=== PATIENT | female | born 1955 | race Caucasian/White ===

== ENCOUNTER 2020-08-21 07:09 | Inpatient (IN) | payer MEDICARE ==
[~2020-08-21] VITALS: Ht 152.4 cm; Wt 78.9 kg
--- NOTE | ~2020-08-21 | EMS ---
[facility] [address] [place] [address] EMS Patient Care Report Name: JAIME MARTINEZ Room: [address] IN [facility]#: [id number] Admission: 08/21/20 Attend Phys: Lynn Navarro Discharge: Date of : 51 Report #: [id number] THIS REPORT FOR: //name// Report Transmitted: 08/23/2020 15:57 EMS Care Summary [employer] [facility] Incident [id number] @ 08/21/2020 06:26 Incident Location [address] [place] [address] Patient JAIME MARTINEZ Female, 65 Years 1955 Patient Address [address] [place] [address] Patient History Hypertension (HTN),Novel Coronavirus (COVID-19), Patient Allergies Bactrim, Chief Complaint SHORT OF BREATH Disposition Transported No Lights/[place] [facility] Reason Breathing Problem Transported To [facility] Narrative Engine 2 and Med 1 were dispatched for a [age] year-old female c/o shortness of breath and increased weakness. Patient has confirmed COVID positive. She was just released from [facility] on . Her also is COVID positive and is a patient at [facility]. Patient is AOx3, she has a strong regular bilateral radial pulses. She reports she began having increased shortness of breath and weakness before going to bed [place] [address] EMS Patient Care Report Name: JAIME MARTINEZ Room: [address] IN M.R.#: [id number] Admission: 08/21/20 Attend Phys: Lynn Navarro Discharge: Date of : 51 Report #: [id number] last night. Patient was assisted to the stretcher outside her front door and secured via seatbelts and moved to the ambulance without incident. Med 1 transported to [facility]. In the ambulance, patient's vitals were obtained. Patient was placed on Oxygen via nasal cannula at 2 lpm. Patient was monitored through out transport. Hospital report was given via radio with no questions requested or received. Med 1 arrived at the hospital. Patient was moved to the ER via stretcher without incident. Patient care was transferred to ER staff in room 13. Med 1 returned back into service. [id number] [facility]Shook Initial Vitals @06:44P: 94,SpO2: 93, @06:59P: 94,SpO2: 93, @06:40P: 101,R: 18,BP: 115/93,SpO2: 93, @06:54P: 91,R: 18,BP: 127/71,SpO2: 89, @06:54P: 94,SpO2: 93, @06:49P: 92,SpO2: 94, @07:23GCS: 15,Temp: 97.6F, Assessments @06:40MENTAL:No Abnormalities,SKIN:No Abnormalities,HEENT:Head/Face: No Abnormalities,Eyes: No Abnormalities,Neck/Airway: No Abnormalities,LUNG SOUNDS:ABDOMEN:PELVIS//GI:EXTREMITIES:Left Arm: No Abnormalities,Right Arm: No Abnormalities,Left Leg: No Abnormalities,Right Leg: No Abnormalities,PULSE:NEURO:No Abnormalities, Impression Shortness of breath Procedures @06:43Oxygen FlowRate: 3 Device: Nasal Cannula (NC) Response: UnchangedSucceeded Timeline 06:,Call Received 06:,Dispatched 06:,En Route 06:28,On Scene 06:29,At Patient 06:40,[place] [address] EMS Patient Care Report Name: JAIME MARTINEZ Room: [address] IN [facility]#: [id number] Admission: 08/21/20 Attend Phys: Lynn Navarro Discharge: Date of : 51 Report #: [id number] 06:40,BP: 115/93 M,PULSE: 101,RR: 18 R,SPO2: 93 Ox,ETCO2: ,BG: ,PAIN: ,GCS: , 06:43,Oxygen FlowRate: 3 Device: Nasal Cannula (NC) Response: UnchangedSucceeded, 06:44,BP: / M,PULSE: 94,RR: R,SPO2: 93 Ox,ETCO2: ,BG: ,PAIN: ,GCS: , 06:49,BP: / M,PULSE: 92,RR: R,SPO2: 94 Ox,ETCO2: ,BG: ,PAIN: ,GCS: , 06:54,BP: 127/71 M,PULSE: 91,RR: 18 R,SPO2: 89 Ox,ETCO2: ,BG: ,PAIN: ,GCS: , 06:54,BP: / M,PULSE: 94,RR: R,SPO2: 93 Ox,ETCO2: ,BG: ,PAIN: ,GCS: , 06:59,BP: / M,PULSE: 94,RR: R,SPO2: 93 Ox,ETCO2: ,BG: ,PAIN: ,GCS: , 07:02,At Destination 07:23,BP: / M,PULSE: ,RR: R,SPO2: Ox,ETCO2: ,BG: ,PAIN: ,GCS: 15, 07:28,Call Closed 07:28,In District Disclaimer v1.1 Copyright 2020 [employer] This EMS Care Summary contains data elements from the applicable legal record (which may be displayed differently). It is designed to provide pertinent information for the following purposes: continuity of care, clinical quality, and state data reporting. The complete legal record is available to ED staff and administrators of the receiving hospital in [employer]'s Patient Tracker. All data is provided "as is."
[2020-08-21 07:15] VITALS: BP 122/70
[2020-08-21] MEDS ORDERED: SIMVASTATIN80 MG PO (07:17)
[2020-08-21 08:03] LABS: ABSOLUTE LYMPHOCYTES 0.8 thou/uL (0.8-5.3); ABSOLUTE MONOCYTES 0.5 thou/uL (0.0-1.2); ABSOLUTE NEUTROPHILS 6.5 thou/uL (1.6-8.1); BASOPHILS 0.2 %; HEMATOCRIT 39.7 % (37.0-47.0); HEMOGLOBIN 13.4 gm/dL (12.0-15.0); LYMPHOCYTES 10.1 %; MCH 31.5 pg (26.0-34.0); MCHC 33.9 g/dL (28.0-37.0); MCV 92.8 fL (80.0-100.0); MONOCYTES 6.8 %; MPV 8.2 fl. (7.2-11.1); NUCLEATED RBCS 0 /100WBC; PLATELET COUNT* 182 thou/uL (150-400); POLYS 82.9 %; RBC 4.27 mil/uL (4.20-5.00); RDW-CV 13.4 % (10.5-14.5); WBC 7.9 thou/uL (4.0-11.0)
[2020-08-21 08:16] LABS: APTT 23.2 Seconds (25.0-31.3); PROTIME 10.9 Seconds (9.20-11.50)
[2020-08-21 08:21] LABS: CALCIUM 7.8 mg/dL (8.5-10.1); CREATININE 0.9 mg/dL (0.6-1.3); POTASSIUM 3.3 mmol/L (3.5-5.1)
[2020-08-21 08:31] LABS: ALBUMIN 2.7 g/dL (3.4-5.0); TOTAL BILIRUBIN 0.4 mg/dL (<0.1-1.0); TOTAL PROTEIN 6.4 g/dL (6.4-8.2)
[2020-08-21 11:02] VITALS: BP 91/61
[2020-08-21 12:00] VITALS: BP 100/60
--- NOTE | 2020-08-21 16:13 | EKG ---
[place] [address] ELECTROCARDIOGRAM REPORT Name: JAIME MARTINEZ Aisha Room: [address] ADM IN ..#: [id number] Admission: 08/21/20 Attend Phys: Rafy Pappas Discharge: Date of : 51 Date of Service: 08/21/20 0739 Report #: [id number] THIS REPORT FOR: //name// [facility] ED Test Date: 2020-08-21 Test Time: 07:39:32 Pat Name: JAIME MARTINEZ Department: Room: [facility] Gender: F Beading [place]: DS : 1955 Requested By: Manuel Chisholm Order Number: [id number] MD: Rosendo Ricks Measurements Intervals [place] Rate: 94 P: 39 MA: 137 QRS: 17 QRSD: 82 T: 43 QT: 332 QTc: 416 Interpretive Statements Sinus rhythm Abnormal R-wave progression, early transition No previous ECG available for comparison Electronically Signed On 08-21-2020 16:13:00 THERAPY TEACHER by Rosendo Ricks [email or web address] <ELECTRONICALLY SIGNED> By: Rosendo Ricks MD, FAC 08/21/20 1613 0739 0739 Rosendo Ricks MD, [facility] /EPI
[2020-08-22] VITALS: BP 105/67
[2020-08-22 04:00] VITALS: BP 110/67
[2020-08-22 07:30] VITALS: BP 120/66
[2020-08-22 12:00] VITALS: BP 112/65
[2020-08-22 16:00] VITALS: BP 99/64
[2020-08-22 21:00] VITALS: BP 100/65
[2020-08-23] VITALS: BP 136/69
[2020-08-23 04:00] VITALS: BP 120/59
[2020-08-23 08:00] VITALS: BP 120/60
[2020-08-23 12:15] VITALS: BP 111/66
[2020-08-23 16:20] VITALS: BP 125/76
[2020-08-24] VITALS: BP 110/61
[2020-08-24 04:00] VITALS: BP 112/57
[2020-08-24 08:00] VITALS: BP 108/56
[2020-08-24 11:40] LABS: HEMATOCRIT 40.4 % (37.0-47.0); HEMOGLOBIN 13.6 gm/dL (12.0-15.0); MCH 31.7 pg (26.0-34.0); MCHC 33.7 g/dL (28.0-37.0); MCV 93.9 fL (80.0-100.0); MPV 8.2 fl. (7.2-11.1); NUCLEATED RBCS 0 /100WBC; PLATELET COUNT* 220 thou/uL (150-400); RDW-CV 13.7 % (10.5-14.5); WBC 15.7 thou/uL (4.0-11.0)
[2020-08-24 12:07] LABS: ALBUMIN 2.2 g/dL (3.4-5.0); CALCIUM 7.9 mg/dL (8.5-10.1); CREATININE 0.9 mg/dL (0.6-1.3); POTASSIUM 3.7 mmol/L (3.5-5.1); TOTAL BILIRUBIN 0.4 mg/dL (<0.1-1.0); TOTAL PROTEIN 6.6 g/dL (6.4-8.2)
[2020-08-24 12:10] LABS: ABSOLUTE LYMPHOCYTES 1.1 thou/uL (0.8-5.3); ABSOLUTE MONOCYTES 0.2 thou/uL (0.0-1.2); ABSOLUTE NEUTROPHILS 14.4 thou/uL (1.6-8.1)
[2020-08-24 12:11] LABS: PLATELET ESTIMATE ADEQUATE
[2020-08-24 16:00] VITALS: BP 111/58
[2020-08-24 17:47] VITALS: BP 132/69
[2020-08-24 20:15] LABS: CALCIUM 7.9 mg/dL (8.5-10.1); CREATININE 0.9 mg/dL (0.6-1.3); MAGNESIUM 2.3 mg/dL (1.8-2.4); POTASSIUM 3.7 mmol/L (3.5-5.1)
[2020-08-24 21:39] LABS: BE 2.6 mmol/L (-2 to +3); PCO2 36.4 mmHg (35.0-45.0); PO2 62.2 mmHg (75.0-100.0); pH 7.471 (7.340-7.450)
[2020-08-25] VITALS (7 sets, daily range): BP systolic 87–129; BP diastolic 52–76
[2020-08-25 05:36] LABS: ABSOLUTE LYMPHOCYTES 0.5 thou/uL (0.8-5.3); ABSOLUTE MONOCYTES 0.3 thou/uL (0.0-1.2); ABSOLUTE NEUTROPHILS 11.4 thou/uL (1.6-8.1); BASOPHILS 0.2 %; HEMATOCRIT 40.6 % (37.0-47.0); HEMOGLOBIN 13.6 gm/dL (12.0-15.0); MCH 31.3 pg (26.0-34.0); MCHC 33.5 g/dL (28.0-37.0); MCV 93.6 fL (80.0-100.0); MONOCYTES 2.6 %; MPV 8.4 fl. (7.2-11.1); NUCLEATED RBCS 0 /100WBC; PLATELET COUNT* 222 thou/uL (150-400); POLYS 93.2 %; RBC 4.33 mil/uL (4.20-5.00); RDW-CV 13.7 % (10.5-14.5); WBC 12.3 thou/uL (4.0-11.0)
[2020-08-25 07:00] LABS: ALBUMIN 2.3 g/dL (3.4-5.0); CALCIUM 8.1 mg/dL (8.5-10.1); CREATININE 0.9 mg/dL (0.6-1.3); MAGNESIUM 2.4 mg/dL (1.8-2.4); PHOSPHORUS* 3.2 mg/dL (2.5-4.9); POTASSIUM 3.7 mmol/L (3.5-5.1); TOTAL BILIRUBIN 0.6 mg/dL (<0.1-1.0); TOTAL PROTEIN 7.1 g/dL (6.4-8.2)
[2020-08-25 08:27] LABS: BE 2.2 mmol/L (-2 to +3); PCO2 38.1 mmHg (35.0-45.0); PO2 77.9 mmHg (75.0-100.0); pH 7.453 (7.340-7.450)
--- NOTE | 2020-08-25 17:20 | 2DMMODE ---
[place] [address] 2 D/M-MODE ECHOCARDIOGRAM Name: MICHELLEJAIME G Room: [address] ADM IN [place].#: [id number] Admission: 08/21/20 Attend Phys: Rafy Pappas Discharge: Date of : 51 Date of Service: 08/25/20 1720 Report #: [id number] THIS REPORT FOR: cc: FAM - No family physician/PCP FAM - No family physician/PCP Rosendo Ricks MD [facility] ~ APPROVED REPORT Study performed: 08/25/2020 15:26:59 EXAM: Comprehensive 2D, Doppler, and color-flow Echocardiogram Patient Location: In-Patient Room #: [facility] Status: routine BSA: 1.84 HR: 77 bpm BP: 98/63 mmHg Rhythm: NSR Other Information Study Quality: Good Indications Diabetes Dyspnea 2D Dimensions IVSd: 7.62 (7-11mm) LVOT Diam: 16.93 (18-24mm) LVDd: 39.73 mm PWd: 7.60 (7-11mm) Ascending Ao: 28.62 (22-36mm) LVDs: 20.20 (25-40mm) Aortic Root: 27.28 mm Volumes Left Atrial Volume (Systole) LA ESV Index: 14.40 mL/m2 Aortic Valve AoV Peak Blane.: 1.22 m/s AO Peak Gr.: 5.98 mmHg LVOT Max P.01 mmHg AO Mean Gr.: 3.28 mmHg LVOT Mean P.40 mmHg LVOT Max V: 1.23 m/s AO V2 VTI: 24.58 cm LVOT Mean V: 0.69 m/s ERASMO (VTI): 2.30 cm2 LVOT V1 VTI: 25.12 [place] [address] 2 D/M-MODE ECHOCARDIOGRAM Name: JAIME MARTINEZ Room: [address]#: [id number] Admission: 08/21/20 Attend Phys: Rafy Pappas Discharge: Date of : 51 Date of Service: 08/25/20 1720 Report #: [id number] Mitral Valve E/A Ratio: 0.95 MV Decel. Time: 248.63 ms MV E Max Blane.: 0.79 m/s MV PHT: 72.10 ms MVA (PHT): 3.05 cm2 TDI E/Lateral E': 8.78 E/Medial E': 7.18 Medial E' Blane.: 0.11 m/s Lateral E' Blane.: 0.09 m/s Pulmonary Valve PV Peak Blane.: 1.03 m/s PV Peak Gr.: 4.27 mmHg Tricuspid Valve RAP Estimate: 5.00 mmHg TR Peak Gr.: 25.19 mmHg RVSP: 30.00 mmHg PA Pressure: 30.00 mmHg Left Ventricle The left ventricle is normal size. There is normal LV segmental wall motion. There is normal left ventricular wall thickness. Left ventricular systolic function is normal. The left ventricular ejection fraction is within the normal range. LVEF is 65-70%. The left ventricular diastolic function is normal. Right Ventricle The right ventricle is normal size. The right ventricular systolic function is normal. Atria The left atrium size is normal. The right atrium size is normal. Aortic Valve The aortic valve is normal in structure. No aortic regurgitation is present. There is no aortic valvular stenosis. Mitral Valve The mitral valve is normal in structure. There is no mitral valve regurgitation noted. No evidence of mitral valve stenosis. Tricuspid Valve The tricuspid valve is normal in [place] [address] 2 D/M-MODE ECHOCARDIOGRAM Name: JAIME MARTINEZ Room: [address]#: [id number] Admission: 08/21/20 Attend Phys: Rafy Pappas Discharge: Date of : 51 Date of Service: 08/25/20 1720 Report #: [id number] regurgitation. Pulmonic Valve The pulmonary valve is normal in structure. There is no pulmonic valvular regurgitation. Great Vessels The aortic root is normal in size. IVC is normal in size and collapses >50% with inspiration. Pericardium There is no pericardial effusion. <Conclusion> Left ventricular systolic function is normal. The left ventricular ejection fraction is within the normal range. <ELECTRONICALLY SIGNED> By: Rosendo Ricks MD, FACC 08/25/201719 19 19 Rosendo Ricks MD, FACC /INF
[2020-08-25 18:49] LABS: URINE BILIRUBIN NEGATIVE (Negative); URINE BLOOD NEGATIVE (Negative); URINE CLARITY CLEAR; URINE COLOR YELLOW; URINE GLUCOSE-RANDOM NEGATIVE (Negative); URINE KETONES 1+ (Negative); URINE LEUKOCYTES NEGATIVE (Negative); URINE NITRITE NEGATIVE (Negative); URINE PROTEIN TRACE (Negative); URINE SPECIFIC GRAVITY 1.025 (1.005-1.030); URINE UROBILINOGEN 0.2 E.U./dl (0.2-1.0)
[2020-08-25 23:06] LABS: MYCOPLASMA PNEUMONIA IgG <100 U/mL (0-99); MYCOPLASMA PNEUMONIA IgM <770 U/mL (0-769)
[2020-08-26] VITALS: BP 127/72
[2020-08-26 04:00] VITALS: BP 135/76
[2020-08-26 04:43] LABS: BE -0.8 mmol/L (-2 to +3); PCO2 34.1 mmHg (35.0-45.0); PO2 86.2 mmHg (75.0-100.0); pH 7.438 (7.340-7.450)
[2020-08-26 06:16] LABS: ABSOLUTE LYMPHOCYTES 0.7 thou/uL (0.8-5.3); ABSOLUTE MONOCYTES 0.6 thou/uL (0.0-1.2); ABSOLUTE NEUTROPHILS 7.7 thou/uL (1.6-8.1); BASOPHILS 0.1 %; HEMATOCRIT 39.5 % (37.0-47.0); HEMOGLOBIN 13.2 gm/dL (12.0-15.0); MCH 31.4 pg (26.0-34.0); MCHC 33.4 g/dL (28.0-37.0); MCV 94.1 fL (80.0-100.0); MONOCYTES 6.8 %; MPV 8.9 fl. (7.2-11.1); NUCLEATED RBCS 0 /100WBC; PLATELET COUNT* 244 thou/uL (150-400); POLYS 85.1 %; RBC 4.19 mil/uL (4.20-5.00)
[2020-08-26 06:24] LABS: ALBUMIN 2.3 g/dL (3.4-5.0); CALCIUM 8.4 mg/dL (8.5-10.1); MAGNESIUM 2.6 mg/dL (1.8-2.4); TOTAL BILIRUBIN 0.5 mg/dL (<0.1-1.0); TOTAL PROTEIN 6.7 g/dL (6.4-8.2)
[2020-08-26 09:50] VITALS: BP 112/62
[2020-08-26 15:00] VITALS: BP 112/57
[2020-08-26 19:22] VITALS: BP 131/66
[2020-08-26 21:40] VITALS: BP 119/64
[2020-08-27] VITALS (7 sets, daily range): BP systolic 103–145; BP diastolic 54–69
[2020-08-28 00:26] VITALS: BP 131/71
[2020-08-28 04:00] VITALS: BP 124/66
[2020-08-28 08:00] VITALS: BP 108/61
[2020-08-28 12:00] VITALS: BP 126/66
[2020-08-28 16:00] VITALS: BP 103/63
[2020-08-28 16:39] LABS: HEMATOCRIT 38.1 % (37.0-47.0); HEMOGLOBIN 12.8 gm/dL (12.0-15.0); MCH 31.4 pg (26.0-34.0); MCHC 33.5 g/dL (28.0-37.0); MCV 93.6 fL (80.0-100.0); MPV 8.5 fl. (7.2-11.1); NUCLEATED RBCS 0 /100WBC; PLATELET COUNT* 252 thou/uL (150-400); RBC 4.06 mil/uL (4.20-5.00); RDW-CV 14.3 % (10.5-14.5); WBC 8.5 thou/uL (4.0-11.0)
[2020-08-28 16:47] LABS: CALCIUM 7.9 mg/dL (8.5-10.1); CREATININE 0.8 mg/dL (0.6-1.3); MAGNESIUM 2.5 mg/dL (1.8-2.4); POTASSIUM 3.7 mmol/L (3.5-5.1)
[2020-08-28 17:11] LABS: ABSOLUTE LYMPHOCYTES 0.3 thou/uL (0.8-5.3); ABSOLUTE MONOCYTES 0.4 thou/uL (0.0-1.2); ABSOLUTE NEUTROPHILS 7.7 thou/uL (1.6-8.1); PLATELET ESTIMATE ADEQUATE
[2020-08-28 22:13] VITALS: BP 125/65
[2020-08-29 04:00] VITALS: BP 128/67
[2020-08-29 07:23] LABS: ALBUMIN 2.4 g/dL (3.4-5.0); CALCIUM 8.2 mg/dL (8.5-10.1); CREATININE 0.8 mg/dL (0.6-1.3); MAGNESIUM 2.6 mg/dL (1.8-2.4); POTASSIUM 4.4 mmol/L (3.5-5.1); TOTAL BILIRUBIN 0.8 mg/dL (<0.1-1.0); TOTAL PROTEIN 5.8 g/dL (6.4-8.2)
[2020-08-29 08:00] VITALS: BP 90/48
[2020-08-29 09:07] LABS: ABSOLUTE LYMPHOCYTES 0.9 thou/uL (0.8-5.3); ABSOLUTE MONOCYTES 0.3 thou/uL (0.0-1.2); ABSOLUTE NEUTROPHILS 7.9 thou/uL (1.6-8.1); HEMATOCRIT 36.9 % (37.0-47.0); HEMOGLOBIN 12.5 gm/dL (12.0-15.0); LYMPHOCYTES 9.5 %; MCH 31.4 pg (26.0-34.0); MCHC 33.8 g/dL (28.0-37.0); MCV 92.7 fL (80.0-100.0); MPV 8.5 fl. (7.2-11.1); NUCLEATED RBCS 0 /100WBC; PLATELET COUNT* 235 thou/uL (150-400); POLYS 87.5 %; RBC 3.98 mil/uL (4.20-5.00); WBC 9.1 thou/uL (4.0-11.0)
[2020-08-29 12:00] VITALS: BP 100/80
[2020-08-29 16:00] VITALS: BP 118/75
[2020-08-29 20:00] VITALS: BP 133/62
[2020-08-30] VITALS (8 sets, daily range): BP systolic 92–136; BP diastolic 60–73
[2020-08-30 05:03] LABS: HEMATOCRIT 36.7 % (37.0-47.0); HEMOGLOBIN 12.3 gm/dL (12.0-15.0); MCH 31.4 pg (26.0-34.0); MCHC 33.4 g/dL (28.0-37.0); MCV 94.1 fL (80.0-100.0); MPV 8.6 fl. (7.2-11.1); RBC 3.9 mil/uL (4.20-5.00); RDW-CV 13.9 % (10.5-14.5); WBC 7.8 thou/uL (4.0-11.0)
[2020-08-30 05:58] LABS: ALBUMIN 2.5 g/dL (3.4-5.0); CALCIUM 8.8 mg/dL (8.5-10.1); CREATININE 0.8 mg/dL (0.6-1.3); MAGNESIUM 2.6 mg/dL (1.8-2.4); POTASSIUM 4.2 mmol/L (3.5-5.1); TOTAL BILIRUBIN 0.6 mg/dL (<0.1-1.0); TOTAL PROTEIN 5.6 g/dL (6.4-8.2)
[2020-08-31 00:14] VITALS: BP 148/76
[2020-08-31 04:00] VITALS: BP 120/62
[2020-08-31 05:12] LABS: ABSOLUTE LYMPHOCYTES 0.5 thou/uL (0.8-5.3); ABSOLUTE MONOCYTES 0.2 thou/uL (0.0-1.2); ABSOLUTE NEUTROPHILS 9.2 thou/uL (1.6-8.1); BASOPHILS 0.5 %; HEMATOCRIT 36.9 % (37.0-47.0); HEMOGLOBIN 12.4 gm/dL (12.0-15.0); LYMPHOCYTES 5.4 %; MCH 31.3 pg (26.0-34.0); MCHC 33.5 g/dL (28.0-37.0); MCV 93.4 fL (80.0-100.0); MONOCYTES 2.5 %; MPV 8.3 fl. (7.2-11.1); NUCLEATED RBCS 0 /100WBC; PLATELET COUNT* 199 thou/uL (150-400); POLYS 91.6 %; RBC 3.95 mil/uL (4.20-5.00); RDW-CV 13.9 % (10.5-14.5)
[2020-08-31 05:32] LABS: ALBUMIN 2.3 g/dL (3.4-5.0); CALCIUM 8.1 mg/dL (8.5-10.1); CREATININE 0.6 mg/dL (0.6-1.3); MAGNESIUM 2.4 mg/dL (1.8-2.4); POTASSIUM 4.2 mmol/L (3.5-5.1); TOTAL BILIRUBIN 0.6 mg/dL (<0.1-1.0); TOTAL PROTEIN 5.5 g/dL (6.4-8.2)
[2020-08-31 08:00] VITALS: BP 98/56
[2020-08-31 12:31] VITALS: BP 118/74
[2020-08-31 16:00] VITALS: BP 123/61
[2020-08-31 21:14] VITALS: BP 119/63
[2020-09-01] VITALS (7 sets, daily range): BP systolic 108–134; BP diastolic 62–72
[2020-09-01 06:15] LABS: HEMATOCRIT 37.2 % (37.0-47.0); HEMOGLOBIN 12.2 gm/dL (12.0-15.0); MCH 30.9 pg (26.0-34.0); MCHC 32.9 g/dL (28.0-37.0); MPV 8.3 fl. (7.2-11.1); RBC 3.95 mil/uL (4.20-5.00); WBC 11.8 thou/uL (4.0-11.0)
[2020-09-01 06:39] LABS: ALBUMIN 2.3 g/dL (3.4-5.0); CALCIUM 7.8 mg/dL (8.5-10.1); CREATININE 0.7 mg/dL (0.6-1.3); MAGNESIUM 2.2 mg/dL (1.8-2.4); TOTAL BILIRUBIN 0.5 mg/dL (<0.1-1.0); TOTAL PROTEIN 5.4 g/dL (6.4-8.2)
[2020-09-01] MEDS ORDERED: BROVANA15 MCG/2 M INH (08:41)
[2020-09-01] MEDS ORDERED: MIDODRINE HCL 55 M1 PO (08:41)
[2020-09-01] MEDS ORDERED: PREDNISONE10 MG PO (08:41)
[2020-09-01] MEDS ORDERED: IPRAT-ALBUT 0.5-3 ML INH (08:41)
[2020-09-01] MEDS ORDERED: ASA81BEC PO (08:41)
[2020-09-01] MEDS ORDERED: FLUCONAZOLE 10100 MG PO (08:41)
[2020-09-02 04:45] VITALS: BP 115/61
[2020-09-02 08:30] VITALS: BP 105/61
[2020-09-02 12:13] VITALS: BP 106/69
[2020-09-02 16:00] VITALS: BP 120/57; BP 94/62
[2020-09-02 20:00] VITALS: BP 102/61
[2020-09-03 00:28] VITALS: BP 113/67
[2020-09-03 04:00] VITALS: BP 113/69
[2020-09-03 06:15] LABS: HEMATOCRIT 36.8 % (37.0-47.0); HEMOGLOBIN 12.3 gm/dL (12.0-15.0); MCH 31.4 pg (26.0-34.0); MCHC 33.4 g/dL (28.0-37.0); MPV 8.7 fl. (7.2-11.1); RBC 3.91 mil/uL (4.20-5.00); RDW-CV 13.6 % (10.5-14.5); WBC 9.7 thou/uL (4.0-11.0)
[2020-09-03 06:25] LABS: CALCIUM 8.3 mg/dL (8.5-10.1); CREATININE 0.7 mg/dL (0.6-1.3); MAGNESIUM 2.4 mg/dL (1.8-2.4); POTASSIUM 4.3 mmol/L (3.5-5.1)
[2020-09-03 08:00] VITALS: BP 120/60
[2020-09-03 12:00] VITALS: BP 112/66
[2020-09-03 16:00] VITALS: BP 109/68
[2020-09-03 20:30] VITALS: BP 116/58
[2020-09-04] VITALS (7 sets, daily range): BP systolic 102–137; BP diastolic 54–78
[2020-09-04 05:45] LABS: HEMATOCRIT 35.2 % (37.0-47.0); HEMOGLOBIN 11.9 gm/dL (12.0-15.0); MCH 31.7 pg (26.0-34.0); MCHC 33.9 g/dL (28.0-37.0); MCV 93.6 fL (80.0-100.0); MPV 8.6 fl. (7.2-11.1); RBC 3.77 mil/uL (4.20-5.00); RDW-CV 13.7 % (10.5-14.5); WBC 8.7 thou/uL (4.0-11.0)
[2020-09-04 06:03] LABS: ALBUMIN 2.3 g/dL (3.4-5.0); CALCIUM 8.2 mg/dL (8.5-10.1); CREATININE 0.7 mg/dL (0.6-1.3); MAGNESIUM 2.4 mg/dL (1.8-2.4); POTASSIUM 4.6 mmol/L (3.5-5.1); TOTAL BILIRUBIN 0.5 mg/dL (<0.1-1.0); TOTAL PROTEIN 5.6 g/dL (6.4-8.2)
--- NOTE | 2020-09-04 08:02 | CON ---
[address] [address] CONSULTATION Name: JAIME MARTINEZ Room: [address] IN .R.#: [id number] Admission: 08/21/20 Attend Phys: Lynn Navarro Discharge: Date of : 51 Report #: [id number] THIS REPORT FOR: //name// cc: MARTINA Nino family physician/PCP MARTINA - Mica family physician/PCP ~ DATE OF SERVICE: 08/24/2020 Consult has been requested by Dr. Pappas. INDICATION FOR CONSULTATION: Acute hypoxemic respiratory failure secondary to COVID-19. HISTORY OF PRESENT ILLNESS: This is a 65-year-old female. She was recently discharged from [facility] after treatment for COVID-19. The treatment that she received for COVID-19 over at [facility] is not known. The patient is not able to describe the treatment she received. She now was admitted here on 08/21/2020 with malaise. She had also reported increasing shortness of breath on exertion. She was not having a fever or chills or productive cough at the time of presentation. The patient initially was requiring only 2 liters of oxygen to maintain O2 saturation at around 96%. There has been a progressive worsening in her respiratory status though and currently she is requiring 10 liters of oxygen to maintain O2 saturation around 94% this morning. The patient's blood pressure within the normal range, but on the lower side at 108/56. She does report increasing shortness of breath as well as cough; however, still does not have significant sputum production. The patient did have a CTA chest, which was performed yesterday. It does show bilateral infiltrates. I suspect that in addition to COVID-19, there is a superimposed bacterial infection as well. There is not much swelling of lower extremities. There is no calf pain. The patient answers to the negative for 12 questions for review of systems except as mentioned above. She was able to provide only a fairly limited history. PAST MEDICAL HISTORY: Recently diagnosed with COVID-19. Hyperlipidemia. CURRENT MEDICATIONS: List in [employer] reviewed. HOME MEDICATIONS: The list is unknown except that the patient has used simvastatin in the past. ALLERGIES: No known drug allergies. FAMILY HISTORY: No pertinent family history known at this time. SOCIAL HISTORY: No known history of smoking, ethanol [place] [address] CONSULTATION Name: MICHELLEJAIME Aisha Room: [address]#: [id number] Admission: 08/21/20 Attend Phys: Lynn Navarro Discharge: Date of : 51 Report #: [id number] PHYSICAL EXAMINATION: GENERAL: She is alert, awake and oriented. Provides a fairly limited history. She does appear to be short of breath at rest. VITAL SIGNS: Has a pulse of 75 and blood pressure of 108/56, respiratory rate is around 22-23 at the time of my evaluation. Afebrile with a temperature of 36.7. HEENT: Head is normocephalic and atraumatic. NECK: Does not show raised JVP, asymmetry, mass or lymph nodes. CHEST: Symmetrical expansion on inspection and palpation. On auscultation, breath sounds are bilaterally equal, decreased. I do not hear added sounds. HEART: Regular. There is no murmur. ABDOMEN: Soft and nontender. EXTREMITIES: Lower extremities show trace edema, no calf tenderness. SKIN: Dry and intact. NEUROLOGICAL: Moves all extremities bilaterally equally and spontaneously. No focal deficit identified. LABORATORY DATA: The patient's CTA chest is reviewed. There is no pulmonary emboli. There are infiltrates consistent with COVID-19 with superimposed bacterial infection. The patient's lab work is in [employer] and this is also reviewed. ASSESSMENT AND PLAN: 1. Acute hypoxemic respiratory failure secondary to COVID-19. Continue to titrate oxygen if she worsens, then we will consider BiPAP while asleep. 2. COVID-19 considering significant hypoxemia, which is worsening. I went ahead and increased the Decadron dose. We will therefore give her insulin sliding scale as well. I ordered remdesivir as well as one unit of COVID-19 plasma. The patient may need a second unit as well. 3. Pulmonary infiltrate/secondary bacterial pneumonia. We will try to get records from [facility], we are pending records. I broadened antibiotic coverage to doxycycline and Zosyn. If the patient continues to decline, then we will consider adding either vancomycin or linezolid as well. 4. Mild fluid overload. I ordered one dose of Lasix. We will give her midodrine to avoid a drop in blood pressure. 5. Deep venous thrombosis prophylaxis. Lovenox. 6. Gastrointestinal prophylaxis. Pepcid. 7. Clostridium difficile prophylaxis. We will order Florastor. The patient is critically ill with acute hypoxemic respiratory failure secondary to COVID-19. [address] [place] [address] CONSULTATION Name: JAIME MARTINEZ Room: [address] IN [facility].#: [id number] Admission: 08/21/20 Attend Phys: Lynn Navarro Discharge: Date of : 51 Report #: [id number] Total time spent providing critical care to this patient exceeds 40 minutes. <ELECTRONICALLY SIGNED> By: Javier Rodriguez MD 09/04/20 0802 1336 1400Javier Rodriguez MD /nt
[2020-09-05] VITALS: BP 126/68
[2020-09-05 04:00] VITALS: BP 115/53
[2020-09-05 08:00] VITALS: BP 111/56
[2020-09-05 09:13] LABS: HEMATOCRIT 34.4 % (37.0-47.0); HEMOGLOBIN 11.6 gm/dL (12.0-15.0); MCH 31.5 pg (26.0-34.0); MCHC 33.8 g/dL (28.0-37.0); MCV 93.2 fL (80.0-100.0); MPV 9.1 fl. (7.2-11.1); RBC 3.69 mil/uL (4.20-5.00); RDW-CV 13.7 % (10.5-14.5); WBC 9.7 thou/uL (4.0-11.0)
[2020-09-05 09:21] LABS: CREATININE 0.8 mg/dL (0.6-1.3); POTASSIUM 4.3 mmol/L (3.5-5.1)
[2020-09-05 12:00] VITALS: BP 137/72
[2020-09-05 12:12] LABS: BE 2.3 mmol/L (-2 to +3); PCO2 33.7 mmHg (35.0-45.0); PO2 82.1 mmHg (75.0-100.0); pH 7.492 (7.340-7.450)
[2020-09-05 16:00] VITALS: BP 131/71
[2020-09-05 19:45] VITALS: BP 121/68
[2020-09-06 00:08] VITALS: BP 123/71
[2020-09-06 04:20] VITALS: BP 129/65
[2020-09-06 05:52] LABS: PCO2 39.3 mmHg (35.0-45.0); PO2 76.6 mmHg (75.0-100.0); pH 7.469 (7.340-7.450)
[2020-09-06 07:04] LABS: HEMATOCRIT 31.7 % (37.0-47.0); HEMOGLOBIN 10.8 gm/dL (12.0-15.0); MCH 32.2 pg (26.0-34.0); MCHC 34.2 g/dL (28.0-37.0); MPV 9.4 fl. (7.2-11.1); RBC 3.37 mil/uL (4.20-5.00); RDW-CV 14.1 % (10.5-14.5); WBC 9.3 thou/uL (4.0-11.0)
[2020-09-06 07:28] LABS: ALBUMIN 2.4 g/dL (3.4-5.0); CALCIUM 7.9 mg/dL (8.5-10.1); CREATININE 0.7 mg/dL (0.6-1.3); MAGNESIUM 2.5 mg/dL (1.8-2.4); POTASSIUM 4.6 mmol/L (3.5-5.1); TOTAL BILIRUBIN 0.5 mg/dL (<0.1-1.0); TOTAL PROTEIN 5.5 g/dL (6.4-8.2)
[2020-09-06 08:56] VITALS: BP 104/69
[2020-09-06 12:48] VITALS: BP 125/72
[2020-09-06 17:59] VITALS: BP 107/67
[2020-09-06 21:00] VITALS: BP 115/63
[2020-09-07 00:02] VITALS: BP 132/71
[2020-09-07 03:30] VITALS: BP 119/71
[2020-09-07 05:06] LABS: HEMATOCRIT 30.7 % (37.0-47.0); HEMOGLOBIN 10.4 gm/dL (12.0-15.0); MCH 32.1 pg (26.0-34.0); MCV 94.5 fL (80.0-100.0); MPV 8.9 fl. (7.2-11.1); NUCLEATED RBCS 0 /100WBC; PLATELET COUNT* 94 thou/uL (150-400); RBC 3.25 mil/uL (4.20-5.00); WBC 10.1 thou/uL (4.0-11.0)
[2020-09-07 05:25] LABS: ALBUMIN 2.9 g/dL (3.4-5.0); CALCIUM 8.2 mg/dL (8.5-10.1); CREATININE 0.6 mg/dL (0.6-1.3); MAGNESIUM 2.4 mg/dL (1.8-2.4); POTASSIUM 4.3 mmol/L (3.5-5.1); TOTAL BILIRUBIN 0.5 mg/dL (<0.1-1.0); TOTAL PROTEIN 5.8 g/dL (6.4-8.2)
[2020-09-07 06:43] LABS: ABSOLUTE LYMPHOCYTES 0.2 thou/uL (0.8-5.3); ABSOLUTE MONOCYTES 0.2 thou/uL (0.0-1.2); ABSOLUTE NEUTROPHILS 9.7 thou/uL (1.6-8.1); ATYPICAL LYMPHS 1 %; PLATELET ESTIMATE DECREASED
[2020-09-07 08:00] VITALS: BP 133/67
[2020-09-07 12:11] VITALS: BP 162/47
[2020-09-07 16:15] VITALS: BP 157/54
[2020-09-07 21:00] VITALS: BP 146/72
[2020-09-08 00:28] VITALS: BP 167/79
[2020-09-08 05:07] VITALS: BP 111/46
[2020-09-08 06:34] LABS: HEMATOCRIT 31.4 % (37.0-47.0); HEMOGLOBIN 10.5 gm/dL (12.0-15.0); MCHC 33.5 g/dL (28.0-37.0); MCV 95.5 fL (80.0-100.0); MPV 9.1 fl. (7.2-11.1); RBC 3.29 mil/uL (4.20-5.00); RDW-CV 14.2 % (10.5-14.5); WBC 10.2 thou/uL (4.0-11.0)
[2020-09-08 07:22] LABS: ALBUMIN 2.6 g/dL (3.4-5.0); CALCIUM 8.3 mg/dL (8.5-10.1); CREATININE 0.7 mg/dL (0.6-1.3); MAGNESIUM 2.6 mg/dL (1.8-2.4); POTASSIUM 4.4 mmol/L (3.5-5.1); TOTAL BILIRUBIN 0.5 mg/dL (<0.1-1.0); TOTAL PROTEIN 5.6 g/dL (6.4-8.2)
[2020-09-08 11:46] VITALS: BP 134/75
[2020-09-08 15:59] VITALS: BP 148/70
[2020-09-08 20:00] VITALS: BP 116/64
[2020-09-09] VITALS: BP 148/67
[2020-09-09 04:00] VITALS: BP 142/73
[2020-09-09 08:00] VITALS: BP 132/98
[2020-09-09 11:28] VITALS: BP 145/91
[2020-09-09 18:34] VITALS: BP 133/82
[2020-09-09 20:00] VITALS: BP 108/61
[2020-09-10 00:22] VITALS: BP 125/75
[2020-09-10 05:28] VITALS: BP 106/58
[2020-09-10 09:00] VITALS: BP 118/65
[2020-09-10 12:00] VITALS: BP 104/57
[2020-09-10 16:00] VITALS: BP 114/66
[2020-09-10 20:00] VITALS: BP 112/59
[2020-09-11] VITALS: BP 123/60
[2020-09-11 04:00] VITALS: BP 153/78
[2020-09-11 12:14] VITALS: BP 111/62
[2020-09-11 16:24] VITALS: BP 119/73
[2020-09-11 16:47] LABS: HEMATOCRIT 36.1 % (37.0-47.0); HEMOGLOBIN 11.9 gm/dL (12.0-15.0); MCH 31.5 pg (26.0-34.0); MCV 95.6 fL (80.0-100.0); MPV 8.8 fl. (7.2-11.1); NUCLEATED RBCS 0 /100WBC; PLATELET COUNT* 124 thou/uL (150-400); RBC 3.78 mil/uL (4.20-5.00); RDW-CV 14.8 % (10.5-14.5); WBC 6.4 thou/uL (4.0-11.0)
[2020-09-11 17:01] LABS: ALBUMIN 2.7 g/dL (3.4-5.0); CALCIUM 8.6 mg/dL (8.5-10.1); CREATININE 0.7 mg/dL (0.6-1.3); MAGNESIUM 2.4 mg/dL (1.8-2.4); POTASSIUM 4.4 mmol/L (3.5-5.1); TOTAL BILIRUBIN 0.5 mg/dL (<0.1-1.0); TOTAL PROTEIN 6.3 g/dL (6.4-8.2)
[2020-09-11 17:16] LABS: ABSOLUTE LYMPHOCYTES 0.3 thou/uL (0.8-5.3); ABSOLUTE MONOCYTES 0.1 thou/uL (0.0-1.2); ATYPICAL LYMPHS 1 %; PLATELET ESTIMATE DECREASED
[2020-09-11 20:00] VITALS: BP 120/78
[2020-09-12] VITALS: BP 127/70
[2020-09-12 04:00] VITALS: BP 110/63
[2020-09-12 05:13] LABS: ABSOLUTE BASOPHILS 0.1 thou/uL (0.0-0.2); ABSOLUTE LYMPHOCYTES 0.3 thou/uL (0.8-5.3); ABSOLUTE MONOCYTES 0.2 thou/uL (0.0-1.2); ABSOLUTE NEUTROPHILS 4.5 thou/uL (1.6-8.1); EOSINOPHILS 0.1 %; HEMATOCRIT 28.5 % (37.0-47.0); LYMPHOCYTES 5.6 %; MCH 31.9 pg (26.0-34.0); MCHC 33.7 g/dL (28.0-37.0); MCV 94.7 fL (80.0-100.0); MONOCYTES 4.7 %; MPV 9.1 fl. (7.2-11.1); NUCLEATED RBCS 0 /100WBC; PLATELET COUNT* 107 thou/uL (150-400); POLYS 88.6 %; RBC 3.01 mil/uL (4.20-5.00); RDW-CV 14.4 % (10.5-14.5); WBC 5.1 thou/uL (4.0-11.0)
[2020-09-12 05:31] LABS: CALCIUM 8.1 mg/dL (8.5-10.1); CREATININE 0.5 mg/dL (0.6-1.3); MAGNESIUM 2.4 mg/dL (1.8-2.4); POTASSIUM 4.2 mmol/L (3.5-5.1)
[2020-09-12 05:36] LABS: HEMOGLOBIN 9.6 gm/dL (12.0-15.0)
[2020-09-12 08:30] VITALS: BP 135/72
[2020-09-12 12:00] VITALS: BP 121/71
[2020-09-12 20:00] VITALS: BP 139/62
[2020-09-13] VITALS: BP 134/80
[2020-09-13 04:00] VITALS: BP 123/70
[2020-09-13 06:36] LABS: ABSOLUTE LYMPHOCYTES 0.4 thou/uL (0.8-5.3); ABSOLUTE MONOCYTES 0.2 thou/uL (0.0-1.2); ABSOLUTE NEUTROPHILS 3.6 thou/uL (1.6-8.1); BASOPHILS 0.1 %; EOSINOPHILS 0.1 %; HEMATOCRIT 29.9 % (37.0-47.0); HEMATOCRIT 30.1 % (37.0-47.0); HEMOGLOBIN 10.1 gm/dL (12.0-15.0); HEMOGLOBIN 10.2 gm/dL (12.0-15.0); MCH 32.1 pg (26.0-34.0); MCH 32.2 pg (26.0-34.0); MCHC 33.9 g/dL (28.0-37.0); MCV 94.7 fL (80.0-100.0); MPV 9.2 fl. (7.2-11.1); MPV 9.4 fl. (7.2-11.1); NUCLEATED RBCS 0 /100WBC; PLATELET COUNT* 113 thou/uL (150-400); POLYS 84.8 %; RBC 3.16 mil/uL (4.20-5.00); RBC 3.18 mil/uL (4.20-5.00); RDW-CV 14.3 % (10.5-14.5); RDW-CV 14.4 % (10.5-14.5); WBC 4.3 thou/uL (4.0-11.0)
[2020-09-13 06:40] LABS: CREATININE 0.5 mg/dL (0.6-1.3); MAGNESIUM 2.2 mg/dL (1.8-2.4); POTASSIUM 3.7 mmol/L (3.5-5.1)
[2020-09-13 08:00] VITALS: BP 126/72
[2020-09-13 11:48] VITALS: BP 106/43
[2020-09-13 16:50] VITALS: BP 126/74
[2020-09-13 20:00] VITALS: BP 117/73
[2020-09-14] VITALS: BP 113/70
[2020-09-14 04:00] VITALS: BP 105/62
[2020-09-14 08:00] VITALS: BP 110/70; BP 110/72
[2020-09-14 12:00] VITALS: BP 110/80; BP 112/78
[2020-09-14 16:00] VITALS: BP 108/78
[2020-09-14 20:00] VITALS: BP 111/63
[2020-09-15 00:15] VITALS: BP 117/60
[2020-09-15 05:42] VITALS: BP 103/53
[2020-09-15 08:00] VITALS: BP 103/61; BP 143/70
[2020-09-15] MEDS ORDERED: MUCINEX600 MG PO (09:39)
[2020-09-15] MEDS ORDERED: NEXIUM40 MG PO (09:39)
[2020-09-15] MEDS ORDERED: PULMICORT0.5 MG/2 M INH (09:39)
[2020-09-15] MEDS ORDERED: MIDODRINE HCL 55 M1 PO (09:39)
[2020-09-15] MEDS ORDERED: PREDNISONE 10 M10 MG PO (09:39)
[2020-09-15 10:33] VITALS: BP 103/61; BP 143/70
[2020-09-15 13:55] VITALS: BP 114/68
== END 2020-09-15 14:48 | DRG 177 ==
LOC: M.ERS 07:09 → M.TBA-ER 08:49 → M.ORTHSURG 08:49
PROVIDERS: Family Medicine; Internal Medicine; Internal Medicine Critical Care Medicine; ADMIT Internal Medicine; ATTEND Internal Medicine
PROC: XW033E5 Introduction of Remdesivir Anti-infective into Peripheral Vein, Percutaneous Approach, New Technology Group 5 (ICD-10-PCS; principal; 2020-08-24)
PROC: XW13325 Transfusion of Convalescent Plasma (Nonautologous) into Peripheral Vein, Percutaneous Approach, New Technology Group 5 (ICD-10-PCS; principal; 2020-08-24)
PROC: 5A09357 Assistance with Respiratory Ventilation, Less than 24 Consecutive Hours, Continuous Positive Airway Pressure (ICD-10-PCS; principal; 2020-08-24)
PROC: 05HY33Z Insertion of Infusion Device into Upper Vein, Percutaneous Approach (ICD-10-PCS; principal; 2020-08-24)
PROC: 5A0935A Assistance with Respiratory Ventilation, Less than 24 Consecutive Hours, High Flow/Velocity Cannula (ICD-10-PCS; principal; 2020-08-24)
PROC: 5A0935A Assistance with Respiratory Ventilation, Less than 24 Consecutive Hours, High Flow/Velocity Cannula (ICD-10-PCS; 2020-08-25)
PROC: 5A09357 Assistance with Respiratory Ventilation, Less than 24 Consecutive Hours, Continuous Positive Airway Pressure (ICD-10-PCS; 2020-08-25)
PROC: 5A0935A Assistance with Respiratory Ventilation, Less than 24 Consecutive Hours, High Flow/Velocity Cannula (ICD-10-PCS; 2020-08-26)
PROC: 5A09357 Assistance with Respiratory Ventilation, Less than 24 Consecutive Hours, Continuous Positive Airway Pressure (ICD-10-PCS; 2020-08-26)
PROC: 5A0935A Assistance with Respiratory Ventilation, Less than 24 Consecutive Hours, High Flow/Velocity Cannula (ICD-10-PCS; 2020-08-27)
PROC: 5A09357 Assistance with Respiratory Ventilation, Less than 24 Consecutive Hours, Continuous Positive Airway Pressure (ICD-10-PCS; 2020-08-27)
PROC: 5A09357 Assistance with Respiratory Ventilation, Less than 24 Consecutive Hours, Continuous Positive Airway Pressure (ICD-10-PCS; 2020-08-28)
PROC: 5A0935A Assistance with Respiratory Ventilation, Less than 24 Consecutive Hours, High Flow/Velocity Cannula (ICD-10-PCS; 2020-08-28)
PROC: 5A0935A Assistance with Respiratory Ventilation, Less than 24 Consecutive Hours, High Flow/Velocity Cannula (ICD-10-PCS; 2020-08-29)
PROC: 5A09357 Assistance with Respiratory Ventilation, Less than 24 Consecutive Hours, Continuous Positive Airway Pressure (ICD-10-PCS; 2020-08-31)
PROC: 5A0935A Assistance with Respiratory Ventilation, Less than 24 Consecutive Hours, High Flow/Velocity Cannula (ICD-10-PCS; 2020-09-03)
PROC: 5A0935A Assistance with Respiratory Ventilation, Less than 24 Consecutive Hours, High Flow/Velocity Cannula (ICD-10-PCS; 2020-09-04)
PROC: 0W9900Z Drainage of Right Pleural Cavity with Drainage Device, Open Approach (ICD-10-PCS; 2020-09-05)
PROC: 5A0935A Assistance with Respiratory Ventilation, Less than 24 Consecutive Hours, High Flow/Velocity Cannula (ICD-10-PCS; 2020-09-05)
PROC: 5A09357 Assistance with Respiratory Ventilation, Less than 24 Consecutive Hours, Continuous Positive Airway Pressure (ICD-10-PCS; 2020-09-05)
PROC: 5A0935A Assistance with Respiratory Ventilation, Less than 24 Consecutive Hours, High Flow/Velocity Cannula (ICD-10-PCS; 2020-09-06)
PROC: 5A0935A Assistance with Respiratory Ventilation, Less than 24 Consecutive Hours, High Flow/Velocity Cannula (ICD-10-PCS; 2020-09-07)
PROC: 5A09357 Assistance with Respiratory Ventilation, Less than 24 Consecutive Hours, Continuous Positive Airway Pressure (ICD-10-PCS; 2020-09-07)
PROC: 5A0935A Assistance with Respiratory Ventilation, Less than 24 Consecutive Hours, High Flow/Velocity Cannula (ICD-10-PCS; 2020-09-08)
PROC: 5A09357 Assistance with Respiratory Ventilation, Less than 24 Consecutive Hours, Continuous Positive Airway Pressure (ICD-10-PCS; 2020-09-08)
PROC: 5A09357 Assistance with Respiratory Ventilation, Less than 24 Consecutive Hours, Continuous Positive Airway Pressure (ICD-10-PCS; 2020-09-09)
PROC: 5A0935A Assistance with Respiratory Ventilation, Less than 24 Consecutive Hours, High Flow/Velocity Cannula (ICD-10-PCS; 2020-09-10)
PROC: 5A0935A Assistance with Respiratory Ventilation, Less than 24 Consecutive Hours, High Flow/Velocity Cannula (ICD-10-PCS; 2020-09-11)
PROC: 5A0935A Assistance with Respiratory Ventilation, Less than 24 Consecutive Hours, High Flow/Velocity Cannula (ICD-10-PCS; 2020-09-12)
PROC: 5A0935A Assistance with Respiratory Ventilation, Less than 24 Consecutive Hours, High Flow/Velocity Cannula (ICD-10-PCS; 2020-09-13)
DX: U07.1 COVID-19 (principal); J12.89 Other viral pneumonia; J96.01 Acute respiratory failure with hypoxia; E43 Unspecified severe protein-calorie malnutrition; J93.9 Pneumothorax, unspecified; E78.5 Hyperlipidemia, unspecified; E87.70 Fluid overload, unspecified; R73.9 Hyperglycemia, unspecified; B34.9 Viral infection, unspecified; T38.0X5A Adverse effect of glucocorticoids and synthetic analogues, initial encounter; Y92.89 Other specified places as the place of occurrence of the external cause; Z79.899 Other long term (current) drug therapy; Z68.34 Body mass index [BMI] 34.0-34.9, adult

== ENCOUNTER 2020-09-15 14:33 | Inpatient (IN) | payer MEDICARE ==
[~2020-09-15] VITALS: Ht 162.6 cm; Wt 75.8 kg
[~2020-09-15 14:33] MED LIST: ASA81BEC PO; BROVANA15 MCG/2 M INH; FLUCONAZOLE 10100 MG PO; IPRAT-ALBUT 0.5-3 ML INH; MIDODRINE HCL 55 M1 PO; MUCINEX600 MG PO; NEXIUM40 MG PO; PREDNISONE 10 M10 MG PO; PREDNISONE10 MG PO; PULMICORT0.5 MG/2 M INH; SIMVASTATIN80 MG PO
[2020-09-15 15:30] VITALS: BP 145/78
[2020-09-15 20:19] VITALS: BP 131/41
[2020-09-16 05:11] LABS: HEMATOCRIT 27.7 % (37.0-47.0); HEMOGLOBIN 9.4 gm/dL (12.0-15.0); MCH 32.2 pg (26.0-34.0); MCHC 33.8 g/dL (28.0-37.0); MCV 95.1 fL (80.0-100.0); MPV 9.1 fl. (7.2-11.1); RBC 2.91 mil/uL (4.20-5.00); RDW-CV 14.6 % (10.5-14.5); WBC 4.7 thou/uL (4.0-11.0)
[2020-09-16 05:21] LABS: CALCIUM 8.1 mg/dL (8.5-10.1); CREATININE 0.6 mg/dL (0.6-1.3); POTASSIUM 4.2 mmol/L (3.5-5.1)
[2020-09-16 07:30] VITALS: BP 135/67
[2020-09-16 13:52] LABS: CREATININE 0.6 mg/dL (0.6-1.3); POTASSIUM 4.4 mmol/L (3.5-5.1)
[2020-09-16 13:55] LABS: MAGNESIUM 2.2 mg/dL (1.8-2.4); PHOSPHORUS* 3.1 mg/dL (2.5-4.9)
[2020-09-16 21:28] VITALS: BP 121/69
[2020-09-17 20:06] VITALS: BP 113/68
[2020-09-18 08:00] VITALS: BP 110/63
[2020-09-18 13:05] LABS: BE -0.2 mmol/L (-2 to +3); PCO2 36.5 mmHg (35.0-45.0); PO2 69.8 mmHg (75.0-100.0); pH 7.432 (7.340-7.450)
[2020-09-18 13:12] LABS: HEMATOCRIT 32.2 % (37.0-47.0); HEMOGLOBIN 10.7 gm/dL (12.0-15.0); MCH 31.8 pg (26.0-34.0); MCHC 33.3 g/dL (28.0-37.0); MCV 95.6 fL (80.0-100.0); MPV 8.7 fl. (7.2-11.1); RBC 3.36 mil/uL (4.20-5.00); RDW-CV 15.1 % (10.5-14.5); WBC 6.1 thou/uL (4.0-11.0)
[2020-09-18 13:40] LABS: CALCIUM 9.2 mg/dL (8.5-10.1); CREATININE 0.8 mg/dL (0.6-1.3); POTASSIUM 4.3 mmol/L (3.5-5.1)
[2020-09-18 19:00] VITALS: BP 103/49
[2020-09-19 07:30] VITALS: BP 104/55
[2020-09-19 19:00] VITALS: BP 97/59
[2020-09-20 04:30] LABS: HEMATOCRIT 27.6 % (37.0-47.0); HEMOGLOBIN 9.4 gm/dL (12.0-15.0); MCH 32.4 pg (26.0-34.0); MCHC 34.1 g/dL (28.0-37.0); MCV 94.9 fL (80.0-100.0); RBC 2.91 mil/uL (4.20-5.00); RDW-CV 15.3 % (10.5-14.5); WBC 5.1 thou/uL (4.0-11.0)
[2020-09-20 04:58] LABS: CALCIUM 8.3 mg/dL (8.5-10.1); CREATININE 0.6 mg/dL (0.6-1.3); POTASSIUM 3.6 mmol/L (3.5-5.1)
[2020-09-20 08:00] VITALS: BP 110/64
[2020-09-20 20:00] VITALS: BP 119/63
[2020-09-21 08:00] VITALS: BP 120/66
[2020-09-21 20:00] VITALS: BP 113/72
[2020-09-22 08:00] VITALS: BP 126/60
[2020-09-22 20:00] VITALS: BP 107/57
[2020-09-23 07:38] VITALS: BP 114/63
[2020-09-23 19:00] VITALS: BP 117/72
[2020-09-24 07:17] VITALS: BP 116/67
[2020-09-24 20:00] VITALS: BP 116/58
[2020-09-25 08:08] VITALS: BP 115/68
[2020-09-25 20:00] VITALS: BP 101/62
[2020-09-26 04:23] LABS: HEMATOCRIT 27.4 % (37.0-47.0); HEMOGLOBIN 9.4 gm/dL (12.0-15.0); MCH 32.2 pg (26.0-34.0); MCHC 34.1 g/dL (28.0-37.0); MCV 94.5 fL (80.0-100.0); MPV 8.4 fl. (7.2-11.1); RBC 2.9 mil/uL (4.20-5.00); RDW-CV 16.1 % (10.5-14.5)
[2020-09-26 05:06] LABS: CALCIUM 8.6 mg/dL (8.5-10.1); CREATININE 0.6 mg/dL (0.6-1.3); MAGNESIUM 2.2 mg/dL (1.8-2.4); POTASSIUM 3.8 mmol/L (3.5-5.1)
[2020-09-26 07:30] VITALS: BP 99/69
[2020-09-26 19:00] VITALS: BP 100/57
[2020-09-27 04:26] LABS: CALCIUM 8.4 mg/dL (8.5-10.1); CREATININE 0.6 mg/dL (0.6-1.3)
[2020-09-27 04:29] LABS: HEMATOCRIT 25.5 % (37.0-47.0); HEMOGLOBIN 8.6 gm/dL (12.0-15.0); MCH 32.1 pg (26.0-34.0); MCHC 33.8 g/dL (28.0-37.0); MPV 8.3 fl. (7.2-11.1); RBC 2.69 mil/uL (4.20-5.00); RDW-CV 16.2 % (10.5-14.5); WBC 5.5 thou/uL (4.0-11.0)
[2020-09-27 08:00] VITALS: BP 116/71
[2020-09-27 19:00] VITALS: BP 103/60
[2020-09-28 07:45] VITALS: BP 104/63
[2020-09-29 08:00] VITALS: BP 107/65
[2020-09-29 19:00] VITALS: BP 113/49; BP 141/81
[2020-09-30 08:00] VITALS: BP 108/66
[2020-09-30 13:57] LABS: HEMOGLOBIN 10.1 gm/dL (12.0-15.0); MCH 31.4 pg (26.0-34.0); MCHC 32.6 g/dL (28.0-37.0); MCV 96.3 fL (80.0-100.0); MPV 7.8 fl. (7.2-11.1); NUCLEATED RBCS 0 /100WBC; PLATELET COUNT* 355 thou/uL (150-400); RBC 3.22 mil/uL (4.20-5.00); RDW-CV 17.1 % (10.5-14.5); WBC 7.2 thou/uL (4.0-11.0)
[2020-09-30 14:07] LABS: CALCIUM 9.3 mg/dL (8.5-10.1); CREATININE 0.8 mg/dL (0.6-1.3); POTASSIUM 3.9 mmol/L (3.5-5.1)
[2020-09-30 16:12] LABS: ABSOLUTE LYMPHOCYTES 1.3 thou/uL (0.8-5.3); ABSOLUTE MONOCYTES 0.9 thou/uL (0.0-1.2)
[2020-09-30 16:13] LABS: ANISOCYTOSIS 1+; PLATELET ESTIMATE ADEQUATE; POLYCHROMASIA Occasional
[2020-09-30 16:14] LABS: LARGE PLATELETS OCCASIONAL
[2020-09-30 20:00] VITALS: BP 113/64
[2020-10-01 08:00] VITALS: BP 115/68
[2020-10-01 12:09] VITALS: BP 106/69
[2020-10-01 17:19] VITALS: BP 118/59
[2020-10-01 19:52] VITALS: BP 107/61
[2020-10-02 07:50] VITALS: BP 143/71
[2020-10-02 14:46] LABS: ABSOLUTE BASOPHILS 0.1 thou/uL (0.0-0.2); ABSOLUTE LYMPHOCYTES 1.3 thou/uL (0.8-5.3); ABSOLUTE MONOCYTES 1.1 thou/uL (0.0-1.2); ABSOLUTE NEUTROPHILS 5.1 thou/uL (1.6-8.1); BASOPHILS 1.2 %; EOSINOPHILS 0.3 %; HEMATOCRIT 29.8 % (37.0-47.0); HEMOGLOBIN 9.8 gm/dL (12.0-15.0); LYMPHOCYTES 17.4 %; MCH 31.9 pg (26.0-34.0); MCHC 32.8 g/dL (28.0-37.0); MCV 97.3 fL (80.0-100.0); MPV 7.6 fl. (7.2-11.1); NUCLEATED RBCS 0 /100WBC; PLATELET COUNT* 411 thou/uL (150-400); POLYS 67.1 %; RBC 3.06 mil/uL (4.20-5.00); WBC 7.6 thou/uL (4.0-11.0)
[2020-10-02 14:53] LABS: CALCIUM 9.6 mg/dL (8.5-10.1); CREATININE 0.8 mg/dL (0.6-1.3); POTASSIUM 3.7 mmol/L (3.5-5.1)
[2020-10-02 17:20] VITALS: BP 118/66
[2020-10-02 19:00] VITALS: BP 108/57
[2020-10-03 07:46] VITALS: BP 109/67
[2020-10-03 20:00] VITALS: BP 102/51
[2020-10-04 04:19] LABS: HEMATOCRIT 24.9 % (37.0-47.0); HEMOGLOBIN 8.4 gm/dL (12.0-15.0); MCH 32.4 pg (26.0-34.0); MCHC 33.6 g/dL (28.0-37.0); MCV 96.5 fL (80.0-100.0); MPV 7.7 fl. (7.2-11.1); RBC 2.58 mil/uL (4.20-5.00); RDW-CV 16.9 % (10.5-14.5); WBC 5.8 thou/uL (4.0-11.0)
[2020-10-04 04:38] LABS: CALCIUM 8.7 mg/dL (8.5-10.1); CREATININE 0.6 mg/dL (0.6-1.3); POTASSIUM 3.2 mmol/L (3.5-5.1)
[2020-10-04 08:12] VITALS: BP 126/74
[2020-10-04 20:00] VITALS: BP 102/58
[2020-10-05 08:55] VITALS: BP 110/63
[2020-10-05] MEDS ORDERED: ASCORBIC ACID500 MG PO (14:22)
[2020-10-05 14:23] VITALS: BP 110/63
[2020-10-05] MEDS ORDERED: NIFEREX TABLET1 EACH PO (14:23)
[2020-10-05] MEDS ORDERED: FOLIC ACID1 MG PO (14:25)
[2020-10-05] MEDS ORDERED: NIACIN500 M2 PO (14:26)
[2020-10-05 14:35] VITALS: BP 110/63
[2020-10-05 16:24] VITALS: BP 110/63
== END 2020-10-05 15:55 | disposition home health service (06) | DRG 947 ==
LOC: M.REH 14:33
PROVIDERS: Family Medicine; Internal Medicine; Nurse Practitioner; Nurse Practitioner Family; ADMIT Physical Medicine & Rehabilitation; ATTEND Physical Medicine & Rehabilitation
DX: R53.81 Other malaise (principal); U07.1 COVID-19; J12.89 Other viral pneumonia; J96.00 Acute respiratory failure, unspecified whether with hypoxia or hypercapnia; J93.9 Pneumothorax, unspecified; E78.5 Hyperlipidemia, unspecified; D64.9 Anemia, unspecified; R00.0 Tachycardia, unspecified; Z82.49 Family history of ischemic heart disease and other diseases of the circulatory system; Z99.81 Dependence on supplemental oxygen; Z79.899 Other long term (current) drug therapy